=== PATIENT | female | born 1995 | race African-American/Black ===

== ENCOUNTER → 2017-08-21 09:43 | Outpatient (CLI) | payer BC, SELFPAY ==
[2017-08-21 10:13] LABS: Basophils % 0.4 % (0.1-2.0); Eosinophils # 0.3 K/mm3 (0.0-0.4); Eosinophils % 6.6 % (0.1-12.0); Hematocrit 40.7 % (37.0-47.0); Hemoglobin 13.5 g/dL (12.2-16.2); Lymphocytes # 1.3 K/mm3 (0.7-4.5); Lymphocytes % 27.5 K/mm3 (10-50); Mean Corpuscular HGB Conc 33.2 g/dL (31.8-35.4); Mean Corpuscular Hemoglobin 30.7 pg (27.0-31.2); Mean Corpuscular Volume 92.4 fl (81-99); Mean Platelet Volume 7.5 fl (7.4-10.4); Monocytes # 0.3 K/mm3 (0.1-1.0); Monocytes % 6.3 % (1.7-9.3); Neutrophils # 2.8 K/mm3 (1.8-7.8); Neutrophils % 59.1 % (37.0-80.0); Platelet Count 265 K/mm3 (142-424); Red Blood Count 4.41 M/mm3 (4.20-5.40); Red Cell Distribution Width 12.5 % (11.5-17.5); White Blood Count 4.8 K/mm3 (4.8-10.8)
[2017-08-21 13:45] LABS: Alanine Aminotransferase 22 U/L (12-78); Albumin/Globulin Ratio 1.1 (1.1-1.8); Alkaline Phosphatase 104 U/L (46-116); Anion Gap 9.5 mEq/L (5-15); Aspartate Amino Transferase 21 U/L (15-37); Bilirubin,Total 0.3 mg/dL (0.2-1.0); Blood Urea Nitrogen 11 mg/dL (7-18); Calcium 9.6 mg/dL (8.5-10.1); Carbon Dioxide 28 mmol/L (21.0-32.0); Chloride 102 mmol/L (98-107); Chol/HDL Ratio 3.4 (1-3.5); Cholesterol 188 mg/dL (140-200); Creatinine,Serum 0.76 mg/dL (0.55-1.02); Estimated Glomerular Filt Rate 96 ml/min (>60); GFR (African American) 116 ML/MIN (>60); Globulin 3.8 gm/dl (1.3-3.2); Glucose 94 mg/dL (74-106); HDL Cholesterol 55 mg/dL (29-89); LDL Cholesterol 123 mg/dL (0-130); Potassium 4.5 mmoL/L (3.5-5.1); Sodium 135 mmol/L (136-145); T4 (Thyroxine) 7.4 ug/dl (4.7-13.3); Thyroid Stimulating Hormone 2.72 uIU/ml (0.358-3.740); Total Protein,Serum 7.8 gm/dL (6.4-8.2); Triglycerides 51 mg/dL (30-200); VLDL Cholesterol 10 mg/dL (0-40)
[2017-08-22 10:15] LABS: Hep A Ab, IgM Negative (Negative); Hepatitis B Core Antibody IgM Negative (Negative); Hepatitis B Surface Antigen Negative (Negative)
[2017-08-23 06:17] LABS: Vitamin D 25 Hydroxy 21.1 ng/mL (30.0-100.0)
[2017-08-23 06:18] LABS: Hepatitis C Antibody <0.1 s/co ratio (0.0-0.9)
== END ==
PROVIDERS: Visit Provider Nurse Practitioner Family
DX: R53.83 Other fatigue (principal)
CPT/HCPCS: 36415; 80053; 80061; 80074; 82652; 84436; 84443; 85025

== ENCOUNTER 2019-02-27 21:21 | Outpatient (CLI) | payer BC, SELFPAY ==
[2019-02-27 21:34] VITALS: BP 159/89; PULSE 107; RESP 18; TEMP 36.7; O2SAT 97; BMI 44.2
[2019-02-27 22:10] VITALS: BP 143/87; PULSE 100
[2019-02-27 22:25] VITALS: BP 153/80
[2019-02-27 22:27] LABS: Microscopic, Urine URINE MICROSCOPIC (MICROSCOPIC)
[2019-02-27 22:32] LABS: Appearance,Urine CLEAR (Clear); Bilirubin,Urine Negative (Negative); Blood, Urine Negative (Negative); Color,Urine YELLOW (Yellow); Glucose,Urine (UA) Negative (Negative); Ketones,Urine Negative (Negative); Leukocyte Esterase,Urine Negative (Negative); Nitrate,Urine Negative (Negative); Protein,Urine Negative (Negative); Urobilinogen,Urine 0.2 EU/dl (0.2)
[2019-02-27 22:53] LABS: Amphetamine/Metha Screen,Urine Negative ng/mL (<1000); Barbiturates Screen,Urine Negative ng/mL (<200); Benzodiazepines Screen,Urine Negative ng/mL (<200); Cannabinoid Screen,Urine Negative ng/mL (<50); Cocaine Screen,Urine Negative ng/mL (<300); Methadone Screen,Urine Negative ng/mL (<300); Opiate Screen,Urine Negative ng/mL (<300); Phencyclidine Screen,Urine Negative ng/mL (<25)
[2019-02-27 23:05] LABS: Bacteria,Urine 1+ /lpf; RBC,Urine Occasional #/hpf (0-3)
== END 2019-02-28 01:58 | disposition home or self-care (01) ==
LOC: OBOUT 21:29 → OB 21:32
PROVIDERS: PCP Obstetrics & Gynecology; Visit Provider Obstetrics & Gynecology
DX: O26.893 Other specified pregnancy related conditions, third trimester (principal); Z3A.31 31 weeks gestation of pregnancy; Z04.1 Encounter for examination and observation following transport accident
CPT/HCPCS: 36415; 59025; 80305; 81001; 86850; 86870

== ENCOUNTER 2019-08-11 11:05 | Emergency (ER) | payer BC, SELFPAY ==
[2019-08-11 11:22] VITALS: BP 149/98; PULSE 77; RESP 18; TEMP 36.8; O2SAT 98; BMI 37.4
--- NOTE | 2019-08-11 11:29 | HMH.EDUTC ---
[facility] [place] Disposition Clinical Impression: Otitis media Qualifiers: Otitis media type: unspecified Laterality: right Qualified Code(s): H66.91 - Otitis media, unspecified, right ear Disposition: Home, Self-Care Condition on Discharge: Good Instructions: Middle Ear Infection, Middle Ear Infections (Alternative Therapy), Amoxicillin, Cetirizine Additional Instructions: *Monitor Temp, Over the counter Motrin or Tylenol as directed/as needed Tylenol every 4 hours and Motrin every 6 hours (as long as your family doctor has told you that you Take medication as prescribed Take allergy medication as prescribed *Sleep elevated *Humidifier/Vaporizer *Flonase 1-2 sprays in each nostril daily but be aware that it may take 2-3 days before you notice improvement Follow up IMMEDIATELY for new or worsening symptoms or no Noticeable improvement over the next 48-72 hours. 911 for difficulty breathing or swallowing Prescriptions: Amoxicillin [Amoxicillin 500mg Cap] 500 mg PO TID #30 cap Transmission Status: Pending to [facility] Fluticasone Propionate [Flonase 50mcg nasal spray 16gm] 1 - 2 spr NS DAILY #1 bottle Transmission Status: Pending to [facility] Cetirizine HCl [Zyrtec] 10 mg PO DAILY 30 Days #30 tab Transmission Status: Pending to [facility] Referrals: Provider,Referral, MD [Primary Care Provider] - As needed Time of Disposition: 11:35 Medical Decision Making - Demarco Inquiry Pt receiving controlled substance: No Demarco was queried for this patient: No Vital Signs: 08/11/19 11:22 Temperature 98.2 F Temperature Source Oral Pulse Rate [Right Brachial] 77 Respiratory Rate 18 Blood Pressure [Right Arm] 149/98 H Blood Pressure Mean [Right Arm] 115 Blood Pressure Source [Right Arm] Automatic Cuff Blood Pressure Position [Right Arm] Sitting 02 Sat by Pulse Oximetry 98 Oxygen Delivery Method Room Air - Reevaluation(s) Time: 11:35 Reevaluation #1: Patient denies [facility] HPI - General Stated complaint: ear pain Time Seen by Provider: 08/11/19 11:29 Mode of Arrival: Family Vehicle Source of Information: Patient Limitations: No Limitations Description of Symptoms (Recalled from Triage Doc. by RN): c/o right ear pain x 1 week HEENT Symptoms (Recalled from RN notes): Yes Resp Symptoms (Recalled from RN notes): No Skin Symptoms (Recalled from RN notes): No MS Symptoms (Recalled from RN notes): No Functional Status (Recalled from RN notes): n/a - History of Present Illness Provider Complaint: Patient states that she thinks she may have an ear infection States that she has been having pain and pressure in her right ear for about a week States that at first she thought it was allergies and went to get her allergy medication but they was out. States that today it was still hurting so she came in to get it checked - Related Data Home Medications Medication Instructions Recorded Confirmed Cetirizine HCl [Zyrtec] 10 mg PO DAILY 08/11/19 08/11/19 Fluoxetine HCl [Prozac 10mg 10 mg PO DAILY 08/11/19 08/11/19 Capsule] Pseudoephedrine HCl [Sudafed] 30 mg PO DAILY 08/11/19 08/11/19 Previous Rx's Medication Instructions Recorded Amoxicillin [Amoxicillin 500mg 500 mg PO TID #30 cap 08/11/19 Cap] Cetirizine HCl [Zyrtec] 10 mg PO DAILY 30 Days #30 tab 08/11/19 Fluticasone Propionate [Flonase 1 - 2 spr NS DAILY #1 bottle 08/11/19 50mcg nasal spray 16gm] Allergies Allergy/AdvReac Type Severity Reaction Status Date / Time From [place] Allergy Severe S-SWELLS-OR Uncoded 09/27/18 10:02 AL/THROAT - Worker's Comp Is this a Worker's Comp case?: No [facility] History - Hepatitis A Screen Drug use history?: No High risk sexual behaviors?: No History of sexually transmitted infection?: No Currently employed?: No Childcare worker?: No Do you have indoor plumbing?: Yes Do you have electricity?: Yes Attestation statement:: This patient has been screened f
[2019-08-11 11:36] VITALS: BP 149/98; PULSE 77; RESP 18; TEMP 36.8; O2SAT 98
== END 2019-08-11 11:42 | disposition home or self-care (01) ==
PROVIDERS: Emergency Provider Nurse Practitioner
DX: H66.91 Otitis media, unspecified, right ear (principal)
CPT/HCPCS: 99201

== ENCOUNTER 2019-11-02 15:29 | Emergency (ER) | payer BC, SELFPAY ==
[2019-11-02 15:50] VITALS: BP 144/76; PULSE 91; RESP 19; TEMP 36.6; O2SAT 100; BMI 38.2
--- NOTE | 2019-11-02 15:56 | HMH.EDUTC ---
[facility] [place] Disposition Clinical Impression: Otitis media Qualifiers: Otitis media type: unspecified Laterality: right Qualified Code(s): H66.91 - Otitis media, unspecified, right ear Disposition: Home, Self-Care Condition on Discharge: Good Instructions: Amoxicillin (Alternative Therapy), Middle Ear Infections (Alternative Therapy), Middle Ear Infection, Amoxicillin Additional Instructions: Sucking on peppermint may help with nausea Take medication as prescribed Return if needed Straight to ER if any life threatening symptoms Follow up with family doctor if no improvement or any worsening of symptoms Prescriptions: Amoxicillin [Amoxicillin 500mg Cap] 500 mg PO TID #30 cap Transmission Status: Pending to [facility] Referrals: Neeraj Franklin MD [Primary Care Provider] - As needed Time of Disposition: 16:02 Medical Decision Making - Demarco Inquiry Pt receiving controlled substance: No Demarco was queried for this patient: No Vital Signs: 11/02/19 15:50 Temperature 97.9 F Temperature Source Oral Pulse Rate [Right Brachial] 91 H Respiratory Rate 19 Blood Pressure [Right Arm] 144/76 H Blood Pressure Mean [Right Arm] 98 Blood Pressure Source [Right Arm] Automatic Cuff Blood Pressure Position [Right Arm] Sitting 02 Sat by Pulse Oximetry 100 Oxygen Delivery Method Room Air [facility] [place] HPI - General Stated complaint: rt ear pain, nauseau Time Seen by Provider: 11/02/19 15:56 Mode of Arrival: Ambulatory Source of Information: Patient Limitations: No Limitations Description of Symptoms (Recalled from Triage Doc. by RN): PATIENT C/O RIGHT EAR PAIN AND NAUSEA X 2 DAYS HEENT Symptoms (Recalled from RN notes): Yes Resp Symptoms (Recalled from RN notes): No Skin Symptoms (Recalled from RN notes): No MS Symptoms (Recalled from RN notes): No Functional Status (Recalled from RN notes): WNL - History of Present Illness Provider Complaint: Patient states that she is and has been having pain in her right ear States that pain has continued to get worse over the last couple of days States that it feels like it did before when she had an ear infection States that today it was worse so she come in to get it checked - Related Data Home Medications Medication Instructions Recorded Confirmed Pnv No.95/Ferrous Fum/Folic AC 1 each PO DAILY 11/02/19 11/02/19 [ Formula Tablet] Previous Rx's Medication Instructions Recorded Amoxicillin [Amoxicillin 500mg 500 mg PO TID #30 cap 11/02/19 Cap] Allergies Allergy/AdvReac Type Severity Reaction Status Date / Time pineapple Allergy Verified 11/02/19 15:57 - Worker's Comp Is this a Worker's Comp case?: No [facility] History - Hepatitis A Screen Drug use history?: No High risk sexual behaviors?: No History of sexually transmitted infection?: No Currently employed?: No Childcare worker?: No Do you have indoor plumbing?: Yes Do you have electricity?: Yes Attestation statement:: This patient has been screened for Hepatitis A risk factors. I have reviewed the patient's past medical history: Yes Medical History: Reports:: Depression Other Medical History: Reports: Other Comment: Depression, Eczema Laterality Cases: Bilateral: Myringotomy (Ear Tubes), Tonsillectomy Other Surgeries: Yes: Cholecystectomy, , Other Amputation: No Fractures: Yes Comment: arm was reset. . 2012- Lap Cholecystectomy. 2016- Primary - Social History Smoking Status: Never smoker Alcohol Intake: never Alcohol Intake Frequency:: holidays/special occasions only Substance Use Type: denies use Occupational Status: other Housing: house Household Members: family - Psychiatric History Pschychiatric History:: Reports:: Depression Family Hx:: Hypertension, Cancer Comment: . 2015- Primary ROS Obtained: Yes All systems reviewed & no additional complaints, Yes Systems reviewed as appropriate & no additional complai
[2019-11-02 16:08] VITALS: BP 144/76; PULSE 91; RESP 19; TEMP 36.6; O2SAT 100
== END 2019-11-02 16:09 | disposition home or self-care (01) ==
PROVIDERS: Emergency Provider Nurse Practitioner; PCP Emergency Medicine
DX: H66.91 Otitis media, unspecified, right ear (principal); F33.1 Major depressive disorder, recurrent, moderate
CPT/HCPCS: 99201

== ENCOUNTER 2020-04-09 11:10 | Emergency (ER) | payer BC, SELFPAY ==
[2020-04-09 12:03] VITALS: BP 153/85; PULSE 104; RESP 20; TEMP 36.6; O2SAT 98; BMI 40.4
[2020-04-09 12:23] LABS: UTC Strep Screen (Rapid) Negative (Negative)
--- NOTE | 2020-04-09 12:25 | HMH.EDUTC ---
[facility] [place] Disposition Clinical Impression: Sinusitis Qualifiers: Sinusitis location: unspecified location Chronicity: unspecified Qualified Code(s): J32.9 - Chronic sinusitis, unspecified Disposition: Home, Self-Care Condition on Discharge: Good Instructions: Sinusitis, Sinus Headache, DI for Sinusitis, Sore Throat Additional Instructions: *Monitor Temp, Over the counter Motrin or Tylenol as directed/as needed Tylenol every 4 hours and Motrin every 6 hours (as long as your family doctor has told you that you can take it) for fever or pain. and straight to ER if unable to lower temp less than 101.0 after medication given *Warm salt water gargles may help to soothe the throat *Throat Lozenges *Warm fluids like tea with honey may help to soothe the throat *Sleep elevated *Humidifier/Vaporizer Your throat swab was sent for culture. Those results are typically sent to your primary care. Be sure to follow up in 2-3 days with your family doctor/primary care physician if no improvement so they can review those result and treat if necessary. If you don?t have a primary care doctor, I recommend you get one but in the mean time, you will have to return to a walk in clinic Follow up IMMEDIATELY for new or worsening symptoms or no Noticeable improvement over the next 48-72 hours. 911 for difficulty breathing or swallowing Prescriptions: Amoxicillin/Potassium Clav [Augmentin 875-125 Tablet] 1 tab PO Q12H 7 Days #14 tab Transmission Status: Pending to [facility] Referrals: PCP,No [Primary Care Provider] - As needed Time of Disposition: 12:35 Medical Decision Making - Demarco Inquiry Pt receiving controlled substance: No Demarco was queried for this patient: No Vital Signs: 04/09/20 12:03 Temperature 97.9 F Temperature Source Oral Pulse Rate [Right Brachial] 104 H Respiratory Rate 20 Blood Pressure [Right Arm] 153/85 H Blood Pressure Mean [Right Arm] 107 Blood Pressure Source [Right Arm] Automatic Cuff Blood Pressure Position [Right Arm] Sitting 02 Sat by Pulse Oximetry 98 Oxygen Delivery Method Room Air - Lab Data Lab results reviewed: Yes: I reviewed the patient's lab results. Lab Results 04/09/20 12:04: Strep Scn Rapid Clinic Negative Orders (Tests/Meds): ORDERS Category Date Time Status Strep Screen Confirmation Stat Micro 04/09/20 12:04 Received Medical Decision Narrative: Patient state that she has taken medication before without complications or reactions Medication discussed with Pharmacy [facility] [place] HPI - General Stated complaint: headache,sore throat Time Seen by Provider: 04/09/20 12:25 Mode of Arrival: Ambulatory Source of Information: Patient Limitations: No Limitations Description of Symptoms (Recalled from Triage Doc. by RN): PATIENT C/O SORE THROAT, RUNNY NOSE, AND DIFFICULTY SWALLOWING SINCE MONDAY. SHE IS 33 WEEKS HEENT Symptoms (Recalled from RN notes): Yes Resp Symptoms (Recalled from RN notes): No Skin Symptoms (Recalled from RN notes): No MS Symptoms (Recalled from RN notes): No Functional Status (Recalled from RN notes): WNL - History of Present Illness Provider Complaint: Patient States that she has been having sore throat and sinus pain and pressure State that feels like it did when she had sinus infection States that she feels like it is draining in the back of her throat and causing her throat to hurt - Related Data Home Medications Medication Instructions Recorded Confirmed Pnv No.95/Ferrous Fum/Folic AC 1 each PO DAILY 11/02/19 11/02/19 [ Formula Tablet] Previous Rx's Medication Instructions Recorded Amoxicillin [Amoxicillin 500mg 500 mg PO TID #30 cap 11/02/19 Cap] Amoxicillin/Potassium Clav 1 tab PO Q12H 7 Days #14 tab 04/09/20 [Augmentin 875-125 Tablet] Allergies Allergy/AdvReac Type Severity Reaction Status Date / Time pineapple Allergy Verified 11/02/19 15:57 - Worker's Comp Is this a Worker
[2020-04-09 12:43] VITALS: BP 153/85; PULSE 104; RESP 20; TEMP 36.6; O2SAT 98
== END 2020-04-09 12:51 | disposition home or self-care (01) ==
PROVIDERS: Emergency Provider Nurse Practitioner
DX: J32.9 Chronic sinusitis, unspecified (principal); R13.10 Dysphagia, unspecified
CPT/HCPCS: 87880; 99201

== ENCOUNTER 2021-01-01 16:21 | Emergency (ER) | payer BC, SELFPAY ==
[2021-01-01 18:37] VITALS: BP 132/82; PULSE 67; RESP 12; TEMP 36.6; O2SAT 100; BMI 38.4
[2021-01-01 18:41] VITALS: BP 132/82; PULSE 67; RESP 12; TEMP 36.6
--- NOTE | 2021-01-01 19:37 | HMH.EDUTC ---
[facility] [place] Disposition Clinical Impression: Otitis media Qualifiers: Otitis media type: suppurative Chronicity: acute Laterality: right Recurrence: non-recurrent Spontaneous tympanic membrane rupture: without spontaneous rupture Qualified Code(s): H66.001 - Acute suppurative otitis media without spontaneous rupture of ear drum, right ear Disposition: Home, Self-Care Condition on Discharge: Good Instructions: Middle Ear Infection Additional Instructions: Drink plenty of fluids. Take tylenol or ibuprofen for pain or fever. Take the medications as directed. Follow up with your regular doctor. GO TO THE ER FOR ANY WORSENING SYMPTOMS Quarantine until you know the results of your covid-19 test. If it is positive, the health department should call you and give you further instructions about your length of Quarantine and other things. Notify your school or workplace of your results and follow their instructions regarding return to work/school. Prescriptions: Pseudoephedrine HCl 30 mg PO Q6HP PRN #30 tab PRN Reason: Congestion Transmission Status: Received by [facility] Amoxicillin/Potassium Clav [Augmentin 875-125 Tablet] 1 tab PO Q12H 10 Days #20 tab Transmission Status: Received by [facility] predniSONE [Prednisone 20mg Tab] 20 mg PO BID 4 Days #8 tab Transmission Status: Received by [facility] Referrals: Provider,ReferralMD [Primary Care Provider] - Forms: Work/School Release Time of Disposition: 19:39 Medical Decision Making - Medical Records Medical records reviewed: No: I reviewed the patient's medical records. - Demarco Inquiry Pt receiving controlled substance: No Vital Signs: 01/01/21 18:37 01/01/21 18:41 Temperature 97.9 F 97.9 F Temperature Source Temporal Artery Scan Pulse Rate 67 Pulse Rate [Left] 67 Respiratory Rate 12 12 Blood Pressure 132/82 Blood Pressure [Right Arm] 132/82 Blood Pressure Mean [Right Arm] 98 Blood Pressure Source [Right Arm] Automatic Cuff 02 Sat by Pulse Oximetry 100 [facility] [place] HPI - General Stated complaint: R ear pain Time Seen by Provider: 01/01/21 19:37 Mode of Arrival: Ambulatory Source of Information: Patient Limitations: No Limitations Description of Symptoms (Recalled from Triage Doc. by RN): pt c/o R ear ache. HEENT Symptoms (Recalled from RN notes): Yes (R ear ache) Resp Symptoms (Recalled from RN notes): No Skin Symptoms (Recalled from RN notes): No MS Symptoms (Recalled from RN notes): No Functional Status (Recalled from RN notes): na - History of Present Illness Provider Complaint: She c/o right ear pain for the past 3 days. She has a history of getting ear infections in that ear easily. She did have a tube in it, but that tube fell out at some point and she went right back to getting ear infections then. - Related Data Home Medications Medication Instructions Recorded Confirmed Pnv No.95/Ferrous Fum/Folic AC 1 each PO DAILY 11/02/19 11/02/19 [ Formula Tablet] Previous Rx's Medication Instructions Recorded Amoxicillin [Amoxicillin 500mg 500 mg PO TID #30 cap 11/02/19 Cap] Amoxicillin/Potassium Clav 1 tab PO Q12H 7 Days #14 tab 04/09/20 [Augmentin 875-125 Tablet] Amoxicillin/Potassium Clav 1 tab PO Q12H 10 Days #20 tab 01/01/21 [Augmentin 875-125 Tablet] Pseudoephedrine HCl 30 mg PO Q6HP PRN #30 tab 01/01/21 predniSONE [Prednisone 20mg 20 mg PO BID 4 Days #8 tab 01/01/21 Tab] Allergies Allergy/AdvReac Type Severity Reaction Status Date / Time pineapple Allergy Verified 11/02/19 15:57 - Worker's Comp Is this a Worker's Comp case?: No H History - Hepatitis A Screen Drug use history?: No High risk sexual behaviors?: No History of sexually transmitted infection?: No Currently employed?: No Childcare worker?: No Do you have indoor plumbing?: Yes Do you have electricity?: Yes Attestation statement:: This patient has been screened
== END 2021-01-01 19:43 | disposition home or self-care (01) ==
PROVIDERS: Emergency Provider Nurse Practitioner Family
DX: H66.001 Acute suppurative otitis media without spontaneous rupture of ear drum, right ear (principal); F33.1 Major depressive disorder, recurrent, moderate
CPT/HCPCS: 99202; G0463

== ENCOUNTER 2021-01-08 09:10 | Emergency (ER) | payer BC, SELFPAY ==
[2021-01-08 09:10] VITALS: BP 137/84; PULSE 96; RESP 16; TEMP 36.9; O2SAT 100; BMI 38.4
--- NOTE | 2021-01-08 09:52 | HMH.EDUTC ---
[facility] [place] Disposition Clinical Impression: Right middle ear infection Qualifiers: Otitis media type: suppurative Chronicity: acute Recurrence: non-recurrent Spontaneous tympanic membrane rupture: without spontaneous rupture Qualified Code(s): H66.001 - Acute suppurative otitis media without spontaneous rupture of ear drum, right ear Disposition: Home, Self-Care Condition on Discharge: Good Instructions: Middle Ear Infection Additional Instructions: Stop the augmentin. Start the azithromycin. Drink plenty of fluids. Take tylenol or ibuprofen for pain or fever. Take the medications as directed. Follow up with your regular doctor. GO TO THE ER FOR ANY WORSENING SYMPTOMS Don't start the oral steroids (medrol dose pack) until tomorrow, since you had the shot here today. Keep taking the flonase nasal spray and the antihistamines that you are already on. Prescriptions: methylPREDNISolone [Medrol] 4 mg PO DIRECTED 6 Days #21 packet Transmission Status: Received by [facility] Azithromycin [Z-Murphy 250mg Tab*] 250 mg PO UD DOSE PK #6 tab Transmission Status: Received by [facility] Referrals: Provider,MD Charlie [Primary Care Provider] - Angela Gillespie MD [Consulting Physician] - Time of Disposition: 10:24 Medical Decision Making - Medical Records Medical records reviewed: No: I reviewed the patient's medical records. - Demarco Inquiry Pt receiving controlled substance: No Vital Signs: 01/08/21 09:10 01/08/21 10:38 Temperature 98.4 F 98.4 F Temperature Source Oral Pulse Rate 96 H Pulse Rate [Right Radial] 96 H Respiratory Rate 16 16 Blood Pressure 137/84 Blood Pressure [Right Arm] 137/84 Blood Pressure Mean [Right Arm] 101 Blood Pressure Source [Right Arm] Automatic Cuff Blood Pressure Position [Right Arm] Sitting 02 Sat by Pulse Oximetry 100 Oxygen Delivery Method Room Air Orders (Tests/Meds): ED MEDICATIONS Discontinued Medications Generic Name Dose Route Start Last Admin Trade Name Freq PRN Reason Stop Dose Admin Methylprednisolone Sodium Succinate 125 mg 01/08/21 09:54 01/08/21 10:16 Methylprednisolone Sod Succ 125mg Vial IM 01/08/21 09:55 125 mg ONCE ONE Administration [facility] [place] HPI - General Stated complaint: rt ear infection Time Seen by Provider: 01/08/21 09:52 Mode of Arrival: Ambulatory Source of Information: Patient Limitations: No Limitations Description of Symptoms (Recalled from Triage Doc. by RN): Pt c/o persistent rt ear pain that is extending into the rt side of her jaw and neck HEENT Symptoms (Recalled from RN notes): Yes (Rt ear pain) Resp Symptoms (Recalled from RN notes): No Skin Symptoms (Recalled from RN notes): No MS Symptoms (Recalled from RN notes): No Functional Status (Recalled from RN notes): n/a - History of Present Illness Provider Complaint: She is back today with complaints of her ear pain and pressure getting worse instead of better. She has been taking the medications as precribed. She denies any fever/chills. - Related Data Home Medications Medication Instructions Recorded Confirmed Pnv No.95/Ferrous Fum/Folic AC 1 each PO DAILY 11/02/19 11/02/19 [ Formula Tablet] Previous Rx's Medication Instructions Recorded Amoxicillin [Amoxicillin 500mg 500 mg PO TID #30 cap 11/02/19 Cap] Amoxicillin/Potassium Clav 1 tab PO Q12H 7 Days #14 tab 04/09/20 [Augmentin 875-125 Tablet] Amoxicillin/Potassium Clav 1 tab PO Q12H 10 Days #20 tab 01/01/21 [Augmentin 875-125 Tablet] Pseudoephedrine HCl 30 mg PO Q6HP PRN #30 tab 01/01/21 predniSONE [Prednisone 20mg 20 mg PO BID 4 Days #8 tab 01/01/21 Tab] Azithromycin [Z-Murphy 250mg Tab*] 250 mg PO UD DOSE PK #6 tab 01/08/21 methylPREDNISolone [Medrol] 4 mg PO DIRECTED 6 Days #21 01/08/21 packet Allergies Allergy/AdvReac Type Severity Reaction Status Date / Time pineapple Allergy Verified 11/02/19 15:57
[2021-01-08 10:38] VITALS: BP 137/84; PULSE 96; RESP 16; TEMP 36.9; O2SAT 100
== END 2021-01-08 10:39 | disposition home or self-care (01) ==
PROVIDERS: Emergency Provider Nurse Practitioner Family
DX: H66.001 Acute suppurative otitis media without spontaneous rupture of ear drum, right ear (principal); F33.1 Major depressive disorder, recurrent, moderate
CPT/HCPCS: 96372; 99202; G0463

== ENCOUNTER → 2023-01-30 10:03 | Outpatient (CLI) | payer OTHER, SELFPAY ==
[2023-01-30 20:04] LABS: Amphetamine/Metha Screen,Urine Negative ng/ml (<1000)
[2023-01-30 20:05] LABS: Barbiturates Screen,Urine Negative ng/ml (<200)
[2023-01-30 20:06] LABS: Benzodiazepines Screen,Urine Negative ng/ml (<200); Cannabinoid Screen,Urine Negative ng/ml (<50)
[2023-01-30 20:07] LABS: Cocaine Screen,Urine Negative ng/ml (<300); Methadone Screen,Urine Negative ng/ml (<300)
[2023-01-30 20:09] LABS: Opiate Screen,Urine Negative ng/ml (<300); Phencyclidine Screen,Urine Negative ng/ml (<25)
== END ==
LOC: LAB.DROPOF 01-31 10:04
PROVIDERS: PCP Nurse Practitioner; Visit Provider Nurse Practitioner Acute Care
DX: F43.12 Post-traumatic stress disorder, chronic (principal); F90.2 Attention-deficit hyperactivity disorder, combined type
CPT/HCPCS: 80305

== ENCOUNTER 2023-06-23 18:08 | Outpatient (CLI) | payer OTHER, SELFPAY ==
[2023-06-23 19:53] LABS: Barbiturates Screen,Urine Negative ng/ml (<200)
[2023-06-23 19:55] LABS: Amphetamine/Metha Screen,Urine Positive ng/ml (<1000); Methadone Screen,Urine Negative ng/ml (<300)
[2023-06-23 19:56] LABS: Cocaine Screen,Urine Negative ng/ml (<300)
[2023-06-23 19:57] LABS: Opiate Screen,Urine Negative ng/ml (<300)
[2023-06-23 19:58] LABS: Phencyclidine Screen,Urine Negative ng/ml (<25)
[2023-06-23 20:04] LABS: Cannabinoid Screen,Urine Negative ng/ml (<50)
[2023-06-23 20:31] LABS: Benzodiazepines Screen,Urine Negative ng/ml (<200)
== END 2023-06-23 23:59 ==
LOC: LAB.DROPOF 18:09
PROVIDERS: PCP Nurse Practitioner Acute Care; Visit Provider Nurse Practitioner Acute Care
DX: Z79.899 Other long term (current) drug therapy (principal)
CPT/HCPCS: 80307